=== PATIENT | female | born 1995 | race Caucasian/White ===

== ENCOUNTER → 2019-12-20 10:43 | Outpatient (CLI) | payer OTHER, MEDICAID, SELFPAY ==
[2019-12-20 13:30] LABS: Hepatitis B Surface Antigen NEGATIVE s/c (NEGATIVE)
[2019-12-20 13:55] LABS: HIV 1 & 2 Ab/Ag 4th Gen Combo NEGATIVE (NEGATIVE); Hep C Virus Ab w/Reflex Quant NEGATIVE s/c (NEGATIVE)
[2019-12-21 03:36] LABS: HSV 2 IGG AB < 0.91 index (0.00-0.90)
[2019-12-21 06:01] LABS: RPR Screen Non Reactive (Non Reactive)
== END ==
PROVIDERS: PCP Physician Assistant; Referring Provider Physician Assistant; Visit Provider Physician Assistant
DX: Z11.3 Encounter for screening for infections with a predominantly sexual mode of transmission (principal)
CPT/HCPCS: 36415; 86592; 86695; 86696; 86803; 87340; 87389; 87491; 87591